=== PATIENT | female | born 1955 | race Caucasian/White ===

== ENCOUNTER 2023-02-25 10:15 | Emergency (ER) | payer OTHER ==
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
[2023-02-25 11:21] LABS: Absolute Lymphocytes (CBC) 2.3 K/uL (0.7-4.9); Hematocrit 40.3 % (36.0-45.0); Lymphocytes % 31.3 % (15.3-44.8); MCV 92.4 fL (80-100); MPV 8.3 fL (7.6-11.3); RBC Red Blood Cell Count 4.36 M/uL (3.86-4.86)
[2023-02-25 11:28] LABS: Protime INR 1.01
[2023-02-25 11:37] LABS: Potassium 4.4 mEq/L (3.5-5.1)
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
[2023-02-25] MEDS ORDERED: TRAMADOL HCL 50 MG TAB ONE (12:23)
[2023-02-25 12:53] VITALS: TEMP 97.3; O2SAT 100
[2023-02-25 12:55] VITALS: BP 154/83
== END 2023-02-25 12:46 | disposition home or self-care (01) ==
LOC: ER 10:15
DX: S22.080A Wedge compression fracture of T11-T12 vertebra, initial encounter for closed fracture (principal); E11.9 Type 2 diabetes mellitus without complications; E03.9 Hypothyroidism, unspecified
CPT/HCPCS: 85025; 80048; 36415; 85610; 82565; 85730; 71260; 74177; 99284; Q9967